=== PATIENT | male | born 1935 | race African-American/Black ===

== ENCOUNTER 2020-09-28 18:00 | Inpatient (IN) | payer MEDICARE, MEDICAID ==
[~2020-09-28] VITALS: Ht 174 cm; Wt 68.0 kg
[~2020-09-28 18:00] MED LIST: AMLO10TA80 PO; BENA20TA10 PO; CARV3.1242 PO; CLON0.1T PO; CRANBERRY TABLET PO; DUTA0.5C2 PO; MULT-1146 PO; TOPUD PO
[2020-09-28 19:02] VITALS: BP 126/72
[2020-09-28 19:30] VITALS: BP 126/72
[2020-09-28] MEDS ORDERED: CLONIDINE 0.2MG TABLET PO PRN (19:45)
[2020-09-28] MEDS ORDERED: ONDANSETRON HCL 4MG/2ML INJ IV PRN (19:45)
[2020-09-28] MEDS ORDERED: ACETAMINOPHEN 325MG TABLET PO PRN (19:45)
[2020-09-28] MEDS ORDERED: MAGNESIUM/ALUMINUM HYDROXIDE/SIMETHICONE 30ML UDC PO PRN (19:45)
[2020-09-28] MEDS ORDERED: HYDRALAZINE 20MG/ML VIAL IV PRN (19:45)
[2020-09-28] MEDS ORDERED: LORAZEPAM 2MG/ML CPJ IV PRN (19:45)
[2020-09-28] MEDS ORDERED: DIPHENHYDRAMINE 50MG/ML VIAL IV PRN (19:45)
[2020-09-28 20:00] VITALS: BP 126/72
[2020-09-28] MEDS: CLONIDINE 0.2MG TABLET PO SCH (21:00)
[2020-09-29] MEDS: CLONIDINE 0.2MG TABLET PO SCH ×3 (05:00→21:13)
[2020-09-29 08:00] VITALS: BP 123/74
[2020-09-29] MEDS: TAMSULOSIN HCL 0.4MG SR CAPSULE PO SCH (09:07)
[2020-09-29 14:32] LABS: BASOPHILS % 0.2 % (0.0-2.0); EOSINOPHILS % 1.2 % (0.0-5.0); HEMATOCRIT. 34.6 % (42.0-52.0); LYMPHOCYTES % 11.6 % (20.0-50.0); MEAN CORPUSCULAR HEMOGLOBIN 33.8 pg (28.0-32.0); MEAN CORPUSCULAR VOLUME 97.8 fL (80.0-94.0); MEAN PLATELET VOLUME 9.2 fl (7.4-10.4); MONOCYTES % 8.9 % (2.0-8.0); NEUTROPHILS % 78.1 % (40.0-76.0); PLATELET 111 x1000/uL (130-400); RED BLOOD CELL COUNT 3.54 mill/uL (4.7-6.1); RED CELL DISTRIBUTION WIDTH 16.8 % (11.6-14.6)
[2020-09-29 14:38] LABS: CHLORIDE 102 mEq/L (98-107)
[2020-09-29 14:44] LABS: PHOSPHORUS 3.1 mg/dL (2.5-4.9)
[2020-09-29] MEDS: LACTULOSE 20G/30ML UDC PO SCH ×2 (14:59→21:13)
[2020-09-29 20:00] VITALS: BP 129/84
[2020-09-29] MEDS: MAGNESIUM GLUCONATE 500MG TABLET PO SCH (20:33)
[2020-09-30] MEDS: CLONIDINE 0.2MG TABLET PO SCH ×3 (05:24→21:03)
[2020-09-30 05:59] LABS: BASOPHILS % 0.3 % (0.0-2.0); EOSINOPHILS % 1.8 % (0.0-5.0); HEMOGLOBIN. 11.3 g/dL (14.0-18.0); LYMPHOCYTES % 20.5 % (20.0-50.0); MEAN CORPUSCULAR HEMOGLOBIN 33.2 pg (28.0-32.0); MEAN CORPUSCULAR VOLUME 100.2 fL (80.0-94.0); MEAN PLATELET VOLUME 9.7 fl (7.4-10.4); MONOCYTES % 14.7 % (2.0-8.0); NEUTROPHILS % 62.7 % (40.0-76.0); PLATELET 100 x1000/uL (130-400); RED BLOOD CELL COUNT 3.39 mill/uL (4.7-6.1); RED CELL DISTRIBUTION WIDTH 16.5 % (11.6-14.6)
[2020-09-30 06:43] LABS: CHLORIDE 102 mEq/L (98-107)
[2020-09-30] MEDS ORDERED: LACTULOSE 20G/30ML UDC PO PRN (08:00)
[2020-09-30] MEDS: MAGNESIUM GLUCONATE 500MG TABLET PO SCH (08:26)
[2020-09-30] MEDS: TAMSULOSIN HCL 0.4MG SR CAPSULE PO SCH (08:27)
[2020-09-30 08:40] VITALS: BP 127/80
[2020-09-30 12:00] VITALS: BP 112/75
[2020-09-30 13:14] VITALS: BP 112/75
[2020-09-30 20:00] VITALS: BP 131/62
[2020-10-01 05:58] LABS: CLARITY URINE CLEAR (CLEAR); COLOR URINE YELLOW (YELLOW); KETONES URINE NEGATIVE (NEGATIVE); LEUKOCYTE ESTERASE URINE TRACE (NEGATIVE); NITRITE URINE NEGATIVE (NEGATIVE); OCCULT BLOOD URINE NEGATIVE (NEGATIVE); PROTEIN URINE NEGATIVE (NEGATIVE); SPECIFIC GRAVITY URINE 1.013 (1.005-1.030)
[2020-10-01 07:55] VITALS: BP 145/88
[2020-10-01] MEDS: TAMSULOSIN HCL 0.4MG SR CAPSULE PO SCH (08:37)
[2020-10-01] MEDS: MAGNESIUM GLUCONATE 500MG TABLET PO SCH (08:37)
[2020-10-01 12:09] VITALS: BP 139/89
[2020-10-01] MEDS: CLONIDINE 0.2MG TABLET PO SCH ×2 (13:25→21:45)
[2020-10-01] MEDS: DOCUSATE SODIUM 100MG CAPSULE PO SCH (16:41)
[2020-10-01 20:00] VITALS: BP 135/92
[2020-10-02 06:00] VITALS: BP 151/94
[2020-10-02] MEDS: CLONIDINE 0.2MG TABLET PO SCH ×3 (06:08→21:24)
[2020-10-02] MEDS: MAGNESIUM GLUCONATE 500MG TABLET PO SCH (08:18)
[2020-10-02] MEDS: DOCUSATE SODIUM 100MG CAPSULE PO SCH ×2 (08:18→17:15)
[2020-10-02] MEDS: ACETAMINOPHEN 325MG TABLET PO PRN ×2 (08:19→17:42)
[2020-10-02] MEDS: TAMSULOSIN HCL 0.4MG SR CAPSULE PO SCH (08:20)
[2020-10-02] MEDS: BISACODYL 5MG TABLET PO PRN (17:15)
[2020-10-02 20:00] VITALS: BP 168/100
[2020-10-02 22:10] VITALS: BP 147/87
[2020-10-03] MEDS: CLONIDINE 0.2MG TABLET PO SCH ×3 (06:26→21:18)
[2020-10-03 08:25] VITALS: BP 159/92
[2020-10-03] MEDS: TAMSULOSIN HCL 0.4MG SR CAPSULE PO SCH (08:30)
[2020-10-03] MEDS: MAGNESIUM GLUCONATE 500MG TABLET PO SCH (08:30)
[2020-10-03] MEDS: DOCUSATE SODIUM 100MG CAPSULE PO SCH ×2 (08:30→17:03)
[2020-10-03] MEDS: AMLODIPINE 10MG TABLET PO SCH (17:04)
[2020-10-03 20:00] VITALS: BP 129/86
[2020-10-04] MEDS ORDERED: NA PHOS,M-B/NA PHOS,DI-BA ENEMA 118ML PR NR (02:30)
[2020-10-04] MEDS: CLONIDINE 0.2MG TABLET PO SCH ×3 (06:27→22:29)
[2020-10-04] MEDS: DOCUSATE SODIUM 100MG CAPSULE PO SCH ×2 (09:00→17:32)
[2020-10-04] MEDS: AMLODIPINE 10MG TABLET PO SCH (10:13)
[2020-10-04] MEDS: TAMSULOSIN HCL 0.4MG SR CAPSULE PO SCH (10:13)
[2020-10-04] MEDS: MAGNESIUM GLUCONATE 500MG TABLET PO SCH (10:13)
[2020-10-04] MEDS: BISACODYL 5MG TABLET PO PRN (15:12)
[2020-10-04 20:00] VITALS: BP 153/94
[2020-10-05] MEDS: CLONIDINE 0.2MG TABLET PO SCH ×3 (05:43→21:21)
[2020-10-05 08:00] VITALS: BP 128/77
[2020-10-05] MEDS: TAMSULOSIN HCL 0.4MG SR CAPSULE PO SCH (10:08)
[2020-10-05] MEDS: AMLODIPINE 10MG TABLET PO SCH (10:09)
[2020-10-05] MEDS: DOCUSATE SODIUM 100MG CAPSULE PO SCH ×2 (10:09→17:40)
[2020-10-05] MEDS: MAGNESIUM GLUCONATE 500MG TABLET PO SCH (10:09)
[2020-10-05 20:00] VITALS: BP 124/79
[2020-10-06] MEDS: CLONIDINE 0.2MG TABLET PO SCH (07:00)
[2020-10-06 08:00] VITALS: BP 128/71
[2020-10-06] MEDS: MAGNESIUM GLUCONATE 500MG TABLET PO SCH (09:01)
[2020-10-06] MEDS: DOCUSATE SODIUM 100MG CAPSULE PO SCH (09:02)
[2020-10-06] MEDS: AMLODIPINE 10MG TABLET PO SCH (09:02)
[2020-10-06] MEDS: TAMSULOSIN HCL 0.4MG SR CAPSULE PO SCH (09:02)
[2020-10-06 11:58] VITALS: BP 128/71
== END 2020-10-06 13:30 | disposition home or self-care (01) | DRG 71 ==
PROVIDERS: ADMIT Psychiatry & Neurology Neurology; ATTEND Internal Medicine
DX: G93.41 Metabolic encephalopathy (principal); F10.239 Alcohol dependence with withdrawal, unspecified; E83.39 Other disorders of phosphorus metabolism; E83.42 Hypomagnesemia; E87.6 Hypokalemia; I10 Essential (primary) hypertension; K40.90 Unilateral inguinal hernia, without obstruction or gangrene, not specified as recurrent; N40.0 Benign prostatic hyperplasia without lower urinary tract symptoms; F03.90 Unspecified dementia, unspecified severity, without behavioral disturbance, psychotic disturbance, mood disturbance, and anxiety; F32.9 Major depressive disorder, single episode, unspecified; R33.9 Retention of urine, unspecified; F41.9 Anxiety disorder, unspecified; Z90.79 Acquired absence of other genital organ(s); Z79.899 Other long term (current) drug therapy
CPT/HCPCS: 36415; 80048; 80076; 81003; 83735; 84100; 85025; 92523; 93970; 97110; 97116; 97162; 97166; 97530; 97535; A4315